=== PATIENT | male | born 2000 | race Caucasian/White ===

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

== ENCOUNTER 2020-07-24 07:48 | Emergency (ER) | payer OTHER ==
[~2020-07-24] VITALS: Ht 182.9 cm; Wt 70.3 kg
[~2020-07-24 07:48] MED LIST changes: +NABUMETONE 750750 M1 PO; +ONDANSETRON HCL4 M2 PO; +ROBAXIN 750 MG750 M1 PO
[2020-07-24 08:28] LABS: ABSOLUTE BASOPHILS 0.1 thou/uL (0.0-0.2); ABSOLUTE EOSINOPHILS 0.1 thou/uL (0.0-0.7); ABSOLUTE LYMPHOCYTES 1.5 thou/uL (0.8-5.3); ABSOLUTE MONOCYTES 0.5 thou/uL (0.0-1.2); BASOPHILS 2.7 %; EOSINOPHILS 1.5 %; HEMATOCRIT 40.5 % (42.0-52.0); HEMOGLOBIN 13.8 gm/dL (14.0-18.0); LYMPHOCYTES 28.1 %; MCH 27.2 pg (26.0-34.0); MCHC 34.2 g/dL (28.0-37.0); MCV 79.6 fL (80.0-100.0); MONOCYTES 10.1 %; MPV 8.3 fl. (7.2-11.1); NUCLEATED RBCS 0 /100WBC; PLATELET COUNT* 249 thou/uL (150-400); POLYS 57.6 %; RBC 5.09 mil/uL (4.50-6.00); RDW-CV 13.3 % (10.5-14.5); WBC 5.3 thou/uL (4.0-11.0)
[2020-07-24 08:38] LABS: CALCIUM 8.2 mg/dL (8.5-10.1); POTASSIUM 3.4 mmol/L (3.5-5.1)
[2020-07-24 08:43] LABS: TOTAL BILIRUBIN 0.5 mg/dL (<0.1-1.0); TOTAL PROTEIN 7.8 g/dL (6.4-8.2)
[2020-07-24 09:11] VITALS: BP 124/77
--- NOTE | 2020-07-24 14:58 | EKG ---
[place] [address] ELECTROCARDIOGRAM REPORT Name: FRANKO MENDEZ Room: [facility]#: [id number] Admission: 07/24/20 Attend Phys: Discharge: 07/24/20 Date of : 89 Date of Service: 07/24/20814 Report #: [id number] THIS REPORT FOR: //name// [facility] ED Test Date: 2020-07-24 Test Time: 08:15:34 Pat Name: FRANKO MENDEZ Department: Room: Gender: Gre Tutor: [facility] : 2000 Requested By: Johan He Order Number: [id number] MD: Ferny Casiano Measurements Intervals [place] Rate: 70 P: 72 ND: 147 QRS: 86 QRSD: 100 T: 60 QT: 391 QTc: 422 Interpretive Statements Sinus rhythm No previous ECG available for comparison Electronically Signed On 07-24-2020 14:58:01 [employer] by Ferny Casiano [email or web address] <ELECTRONICALLY SIGNED> By: Ferny Casiano MD, [facility] 07/24/20 1458 4 4 Ferny Casiano MD, FACC /EPI
== END 2020-07-24 09:13 | disposition home or self-care (01) ==
LOC: M.ERS 07:48
PROVIDERS: Family Medicine
DX: S01.112A Laceration without foreign body of left eyelid and periocular area, initial encounter (principal); R55 Syncope and collapse; R42 Dizziness and giddiness; Z88.0 Allergy status to penicillin; W18.39XA Other fall on same level, initial encounter; Y93.89 Activity, other specified; Y92.89 Other specified places as the place of occurrence of the external cause; Y99.8 Other external cause status